=== PATIENT | female | born 1980 | race Caucasian/White ===

== ENCOUNTER 2022-05-25 14:15 | Outpatient (CLI) | payer OTHER, SELFPAY ==
[2022-05-25 10:11] LABS: Albumin* 4.3 g/dL (3.3-5.0)
[2022-05-25 10:12] LABS: Chloride* 100 mmol/L (96-114); Potassium* 4.3 mmol/L (3.6-5.1); Sodium* 137 mmol/L (135-149)
[2022-05-25 10:14] LABS: Aspartate Amino Transferase* 23 U/L (12-35); Bilirubin Total* 0.9 mg/dL (0.1-1.5); Blood Urea Nitrogen* 19 mg/dL (5-24); Carbon Dioxide* 29 mmol/L (20-32); Cholesterol* 187 mg/dL (90-199); Creatinine* 0.8 mg/dL (0.5-1.5); Estimated Glomerular Filt Rate 94 ml/min; Total Protein* 6.7 g/dL (6.0-8.3)
[2022-05-25 10:15] LABS: Alanine Aminotransferase* 23 U/L (4-35); Alkaline Phosphatase* 55 U/L (40-150); Calcium* 8.9 mg/dL (8.4-10.6); Glucose* 86 mg/dL (60-115); HDL Cholesterol* 75 mg/dL (>=50); LDL Cholesterol Calculated 98 mg/dL (<100); Triglycerides* 71 mg/dL (40-149)
== END 2022-05-25 14:16 | disposition home or self-care (01) ==
PROVIDERS: PCP Family Medicine; Visit Provider Family Medicine
DX: Z13.6 Encounter for screening for cardiovascular disorders (principal)
CPT/HCPCS: 80053; 80061

== ENCOUNTER 2022-06-09 14:58 | Outpatient (CLI) | payer OTHER, SELFPAY ==
--- NOTE | 2022-06-09 15:00 | CRLHL7_ITS ---
For Patients: As a result of the Cures Act, medical imaging exams and procedure reports are released immediately into your electronic medical record. You may view this report before your referring provider. If you have questions, please contact your health care provider. BILATERAL SCREENING MAMMOGRAM WITH COMPUTER-AIDED DETECTION AND TOMOSYNTHESIS TECHNIQUE: CC and MLO views were obtained. These mammographic images have been obtained using full-field digital technique. These mammographic images were interpreted with the benefit of computer-aided detection. Breast Tomosynthesis was used in this interpretation. COMPARISON FILM: 06/08/21, 12/18/19, 10/04/18. FINDINGS: There are scattered areas of fibroglandular density IMPRESSION: There is no radiographic evidence for malignancy. ASSESSMENT: BI-RADS Category 2: Benign RECOMMENDATION: Routine screening mammogram in 1 year. A lay language report of this examination will be provided to the patient. MARGARITA PRETTY M.D. Diagnostic/Nuclear Medicine Radiologist [email or web address] SHASHA:hpuc Transcribed: 3:30 p.mSuhail friend/Dictated by: Margarita Pretty MD @ 06/12/2022 8:29:00 AM (Electronically Signed)
== END 2022-06-09 14:59 | disposition home or self-care (01) ==
LOC: MAMMO 14:59
PROVIDERS: PCP Family Medicine; Visit Provider Family Medicine
DX: Z12.31 Encounter for screening mammogram for malignant neoplasm of breast (principal)
CPT/HCPCS: 77063; 77067

== ENCOUNTER 2023-06-04 08:10 | Outpatient (CLI) | payer OTHER, SELFPAY ==
--- OUTSIDE RECORDS SUMMARY | 2023-06-08 07:37 | XMS_ITS | Clinical Summary ---
Author Name Unknown Organization [facility] Address [place], [place] [address] Care Team Providers Care Agricultural Equipment Salesperson Name Role Phone Charlee Huggins MD Unavailable [phone] Charlee Huggins MD Primary Care Provider + Allergies Active Allergy Reactions Criticality Noted Date Comments Cephalosporins Rash High 05/04/2021 Codeine *Unknown - Childhood Rxn High 11/20/2006 Other reaction(s): GI upset, rash Sulfa (Sulfonamide Antibiotics) *Unknown - Childhood Rxn 11/20/2006 Unlisted Allergen (Include Detail In Comments) Rash Low 05/04/2021 Medications Medication Sig Dispensed Refills Start Date End Date Status ascorbic acid, vitamin C, (VITAMIN C) 250 mg tablet Daily 0 Active cholecalciferol, Vitamin D3, 5,000 unit tab tablet Daily 0 Active cetirizine (ZYRTEC) 10 mg tablet Daily 0 Active fexofenadine-pseudoe phedrine, 180-240 MG, (SINCERE-D) 180-240 mg per tablet Daily 0 02/08/2021 Active fluticasone (50 mcg per actuation) nasal solution (FLONASE) Daily 0 02/08/2021 Active tretinoin 0.05 % 0.05 % cream 0 06/03/2021 Active gabapentin (NEURONTIN) 300 mg capsuleIndications:C ervical disc herniation,Arthropat hy of cervical facet joint Take 1 Capsule (300 mg) by mouth at bedtime. 30 Capsule 3 07/18/2021 Active meloxicam 15 mg tabletIndications:Ar thropathy of cervical facet joint Take 1 Tablet (15 mg) by mouth once daily. 30 Tablet 1 07/18/2021 Active Active Problems No known active problems Social History Tobacco Use Types Packs/Day Years Used Date Smoking Tobacco: Never Smokeless Tobacco: Never Tobacco Cessation:Counseling Given: Yes Alcohol Use Standard Drinks/Week Comments Yes 0 (1 standard drink = 0.6 oz pur e alcohol) Social Connections Answer Date Recorded Frequency of Communication with Friends and Fami ly Not on file 07/18/2021 Alcohol Use Answer Date Recorded How often do you have a drink containing alcohol ? 3 08/29/2021 How many drinks containing a lcohol do you have on a typical day when you are drinking? 0 08/29/2021 How often do you have five or more drinks on one occasion? 2 08/29/2021 Financial Resource Strain Answer Date R ecorded Difficulty of Paying Living Expenses Not on file 07/18/2021 Difficulty of Paying Living Expenses Not on file 07/18/2021 Sex and Gender Information Value Date Recorded Sex Assigned at Not on file Gender Identity Not on file Sexual Orientation Not on file Obstetrics History Last Filed Vital Signs Vital Sign Reading Time Taken Comments Blood Pressure 118/74 08/29/2021 1:27 PM CDT Pulse 67 08/29/2021 1:27 PM CDT Temperature 36.6 ??C (97.8 ??F) 07/18/2021 7:53 AM CS T Respiratory Rate 18 08/29/2021 1:27 PM CDT Oxygen Saturation 100% 08/29/2021 1:27 PM CDT Inhaled Oxygen Concentration - - Weight 70.6 kg (155 lb 9.6 oz) 08/29/2021 1:27 P M CDT Height - - Body Mass Index - - Plan of Treatment Health Maintenance Due Date Last Done Comments Tdap 1990 Depression screening for age 12+ 1991 HIV for age 15-65 1994 BMI (ht and wt on same day) for age 18+ 1997 Hepatitis C screening for age 18-79 1997 Tetanus booster 1999 Pap test for age 21-65 10/30/2022 0, 10/31/2019, 01/12/2015, Additional history exists COVID-19 vaccine series (2022- season) 2023 06/03/2021, 12/02/2020, 09/09/2020 Influenza for age 9-49 01/19/2023 Pneumococcal series for age 6-64 Aged Out No longer eligible based on patient's age to complete this topic Care Teams Agricultural Equipment Salesperson Relationship Specialty Start Date End Date Charlee Huggins MD [address] [place] [address] PCP - General Family Practice 07/18/21 Charlee Huggins MD [address] [place] [address] Family Practice 07/14/15
== END 2023-06-04 08:11 | disposition home or self-care (01) ==
LOC: NFLDREF 06-08 07:36
PROVIDERS: PCP Family Medicine; Referring Provider Family Medicine; Visit Provider Family Medicine
DX: E78.5 Hyperlipidemia, unspecified (principal)
CPT/HCPCS: 80061

== ENCOUNTER 2023-07-09 13:46 | Outpatient (CLI) | payer OTHER, SELFPAY ==
--- OUTSIDE RECORDS SUMMARY | 2023-07-09 13:49 | XMS_ITS | Clinical Summary ---
Author Name Unknown Organization [facility] Address [place], [place] [address] Care Team Providers Care Manufacturing Production Technician Name Role Phone Charlee Huggins MD Unavailable [phone] Charlee Huggins MD Primary Care Provider + [...] age to complete this topic Care Teams Manufacturing Production Technician Relationship Specialty Start Date End Date Charlee Huggins MD [address] [place] [address] PCP - General Family Practice 07/18/21 Charlee Huggins MD [address] [place] [address] Family Practice 07/14/15
--- NOTE | 2023-07-09 14:00 | MM_ITS ---
Patient: JACQUE MUNGUIA Facility:?[facility] Patient ID:?[id number] Site Patient ID:?[id number]. Site :?[id number] Study:?XRay-Breast Bilateral 3D W/CAD-07/09/2023 2:34:15 PM Ordering Physician:Hilary Final Report: BILATERAL SCREENING MAMMOGRAM WITH COMPUTER-AIDED DETECTION AND TOMOSYNTHESIS TECHNIQUE: CC and MLO views were obtained. These mammographic images have been obtained using full-field digital technique. These mammographic images were interpreted with the benefit of computer-aided detection. Breast Tomosynthesis was used in this interpretation. COMPARISON FILM: 06/09/22, 12/06/21, 12/01/19. FINDINGS: There are scattered areas of fibroglandular density. IMPRESSION: There is no radiographic evidence for malignancy. ASSESSMENT: BI-RADS Category 2: Benign RECOMMENDATION: Routine screening mammogram in 1 year. A lay language report of this examination will be provided to the patient. Randolph Harris M.D. Diagnostic/Nuclear Medicine Radiologist [email or web address] SHASHA/eric R& Transcribed: 2:29 pm SP/Dictated by: Randolph Harris MD @ 07/12/2023 10:42:00 AM Signed by:Bill Harris MD @07/12/2023 3:31:32 PM (Electronic Signature)
== END 2023-07-09 13:47 | disposition home or self-care (01) ==
PROVIDERS: PCP Family Medicine; Visit Provider Family Medicine
DX: Z12.31 Encounter for screening mammogram for malignant neoplasm of breast (principal)
CPT/HCPCS: 77063; 77067

== ENCOUNTER 2024-03-26 15:15 | Outpatient (RCR) | payer OTHER, SELFPAY ==
--- NOTE | 2023-06-18 14:01 | PT.OPEX ---
PT [facility] Eval PT [facility] Outpatient Eval Start: 06/18/23 07:53 Freq: Status: Active Protocol: Document 06/18/23 07:54 CRP (Rec: 06/18/23 13:58 CRP [id number]) E-signed By Rick Clifton PT Physical Therapy Outpatient Evaluation Insurance Information Insurance Name [employer] Medical Diagnosis Chronic Neck pain Tension headaches Referring MD Dr Huggins Subjective Subjective Pt has had a hx of R sided neck and upper shoulder pain. Within the last 2 months she has had an onset of L sided upper neck pain that causes headaches and pain down into the L shoulder blade. Does go to chiropractor about one time per week. Has been helpful to some degree. Can have issues waking up with arms falling asleep. Headaches are intermittent. Stretching can help to some degree. 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 Has a sit to stand desk. 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 Bilat SB mod dec MMT Myotomes WNL, poor deep cervical flexion strength. SCM compensation bilat Sensation intact to light touch Special testing:Man traction - feels good, Cervical flex/ rotation test limited bilaterally about 10% Segmental testing: Restricted O,C1, C1,2, CT junction and upper thoracic spine Assessment Assessment/Impression Pt presents to the clinic with long standing cervical spine pain and dysfunction. Pt's current status shows upper cervical spine mobility dysfunction with poor deep cervical flexor control that most likely fuels her neck pain and headaches. With this she also shows lower cervical spine and upper thoracic spine mobility dysfunction with poor nm control that seems to be feeding into her neck pain and scap region pain . Skilled PT necessary to incorporate ther ex, nm noy, manual therapy and pt education to decrease pain and improve functional mobility. Primary Functional Limitations Sleep Postural stability Exercise Plan of Care Rehabilitation Potential Excellent Physical Therapy Goals 1. Pt will be 100% independent with HEP in 8 weeks. 2. Pt will complete full work day with 80% decrease in pian in 12 weeks. 3. Pt will sleep through the night without HAs in 12 weeks. Coordination/Communication With Referral Source Treatment Plan/Direct Interventions Joint Mobilization,Manual Therapy,Neuromuscular Re-ed, Self-Care/Home Management, Therapeutic Activities, Therapeutic Exercises,Traction (Mechanical) Frequency/Duration 1-2x/wk for 12 weeks Patient Will Be Discharged From Therapy Completion of LTG(s),Skills Plateau,Independent w/HEP, Independently Progressing Evaluation Billing Untimed Code Treatment Minutes 30 Complexity Moderate Certification Information Physician Comment/Change : Physician NPI Number #
== END 2024-03-27 07:58 | disposition home or self-care (01) ==
PROVIDERS: PCP Family Medicine; Visit Provider Family Medicine
DX: G44.229 Chronic tension-type headache, not intractable (principal); M54.2 Cervicalgia; Z51.89 Encounter for other specified aftercare
CPT/HCPCS: 97110; 97140; 97162; 97535

== ENCOUNTER 2024-06-09 08:13 | Outpatient (CLI) | payer BC, SELFPAY | END 2024-06-09 08:14 | disposition home or self-care (01) | LOC: NFLDREF 06-17 06:56 | PROVIDERS: PCP Family Medicine; Referring Provider Family Medicine; Visit Provider Family Medicine | DX: E78.5 Hyperlipidemia, unspecified (principal); Z13.9 Encounter for screening, unspecified | CPT/HCPCS: 80048; 80061 ==

== ENCOUNTER 2024-07-04 10:51 | Outpatient (CLI) | payer BC, SELFPAY ==
[2024-07-06 07:16] LABS: HPV Source Cervical/Vag; HPV, High Risk by TMA Not Detected
== END 2024-07-04 10:52 | disposition home or self-care (01) ==
PROVIDERS: PCP Family Medicine; Visit Provider Family Medicine
DX: Z12.4 Encounter for screening for malignant neoplasm of cervix (principal)
CPT/HCPCS: 87624; 87625; 88141; 88142

== ENCOUNTER 2024-07-22 16:17 | Outpatient (CLI) | payer BC, SELFPAY ==
--- NOTE | 2024-07-22 16:20 | CRLHL7_ITS ---
For Patients: As a result of the Century Cures Act, medical imaging exams and procedure reports are released immediately into your electronic medical record. You may view this report before your referring provider. If you have questions, please contact your health care provider. BILATERAL SCREENING MAMMOGRAM WITH COMPUTER-AIDED DETECTION AND TOMOSYNTHESIS TECHNIQUE: CC and MLO views were obtained. These mammographic images have been obtained using full-field digital technique. These mammographic images were interpreted with the benefit of computer-aided detection. Breast Tomosynthesis was used in this interpretation. BILATERAL 2D XCCL. Extra LMO 2D due to positioning. COMPARISON FILM: 07/09/23, 06/09/22, 05/29/21. FINDINGS: The breasts are heterogeneously dense, which may obscure small masses. IMPRESSION: There is no radiographic evidence for malignancy. ASSESSMENT: BI-RADS Category 2: Benign RECOMMENDATION: Routine screening mammogram in 1 year. A lay language report of this examination will be provided to the patient. Kemal Frank M.D. Diagnostic Radiologist [email or web address] SP/Dictated by: Kemal Frank MD @ 07/23/2024 10:06:00 AM (Electronically Signed)
== END 2024-07-22 16:18 | disposition home or self-care (01) ==
LOC: MAMMO 16:17
PROVIDERS: PCP Family Medicine; Visit Provider Family Medicine
DX: Z12.31 Encounter for screening mammogram for malignant neoplasm of breast (principal); R92.333 Mammographic heterogeneous density, bilateral breasts
CPT/HCPCS: 77063; 77067

== ENCOUNTER 2024-07-28 07:55 | Outpatient (CLI) | payer BC, SELFPAY ==
--- NOTE | 2024-07-28 08:43 | W.ANESCHARGE ---
Anesthesia Charges Start Date/Time Anesthesia Start Date: 07/28/24 Anesthesia Start Time: 08:51 Stop Date/Time Anesthesia Stop Date: 07/28/24 Anesthesia Stop Time: 09:15 Coding CPT Codes CPT Codes: HERNANDEZ LWR INTST SCR COLSC - 00479 ([id number]) P2 - PATIENT W/MILD SYST DISEASE, QX - GROUNDS RESTORATION SPECIALIST SVC W/ MD MED DIRECTION, QK - HOME CARE PROVIDER 2-4 CNCRNT ANES PROC
--- NOTE | 2024-07-28 09:30 | W.ANESCHARGE ---
Anesthesia Charges Start Date/Time Anesthesia Start Date: 07/28/24 Anesthesia Start Time: 08:51 Stop Date/Time Anesthesia Stop Date: 07/28/24 Anesthesia Stop Time: 09:15 Coding CPT Codes CPT Codes: ANES LWR INTST SCR COLSC - 90486 ([id number]) P2 - PATIENT W/MILD SYST DISEASE, QK - TUBE WORKER 2-4 CNCRNT ANES PROC, QX - ETL LEAD SVC W/ MD MED DIRECTION
== END 2024-07-28 07:56 | disposition home or self-care (01) ==
LOC: OP CLINIC 07:56
PROVIDERS: PCP Family Medicine; Visit Provider Surgery
DX: Z12.11 Encounter for screening for malignant neoplasm of colon (principal)
CPT/HCPCS: 00812; 45378; J2704

== ENCOUNTER 2025-01-01 13:44 | Outpatient (CLI) | payer BC, SELFPAY | END 2025-01-01 13:45 | disposition home or self-care (01) | LOC: NFLDREF 13:45 | PROVIDERS: PCP Family Medicine; Visit Provider Obstetrics & Gynecology | DX: R63.5 Abnormal weight gain (principal); N39.3 Stress incontinence (female) (male) | CPT/HCPCS: 84443; 87086 ==